=== PATIENT | male | born 1945 | race Caucasian/White ===

== ENCOUNTER 2017-01-05 | Emergency (ER) | payer SELFPAY ==
[~2017-01-05] VITALS: Ht 172.7 cm; Wt 64.1 kg
[2017-01-05 00:04] VITALS: BP 146/78
--- NOTE | 2017-01-05 00:12 | NUR ---
PATIENT LEFT WITHOUT BEING SEEN BY DR. RUST. NO FURTHER CARE PROVIDED FOR PATIENT.
== END 2017-01-05 00:12 | disposition left against medical advice (07) ==
LOC: MED
DX: R06.02 Shortness of breath (principal); Z53.21 Procedure and treatment not carried out due to patient leaving prior to being seen by health care provider